=== PATIENT | female | born 1960 | race Caucasian/White ===

== ENCOUNTER 2017-10-09 16:33 | Emergency (ER) | payer OTHER ==
[~2017-10-09] VITALS: Ht 172.7 cm; Wt 75.8 kg
[~2017-10-09 16:33] MED LIST: ONDA4ODT8
[2017-10-09 16:46] VITALS: BP 115/66
--- NOTE | 2017-10-09 17:30 | NUR ---
PATIENT PRESENTS TO ED WITH RIGHT RIB PAIN . PT STATES . NO DISCOLORATION NOTED, NO FLAIL RIB PALPATED DENIES N/V/D; SKIN IS PINK/WARM/DRY; AAOX4 WITH EVEN AND STEADY GAIT; LUNGS CLEAR BL; HR EVEN AND REGULAR; PT DENIES ANY FEVER, CP, SOB, OR COUGH AT THIS TIME; PATIENT STATES PAIN OF 5/10 AT THIS TIME; VSS; PATIENT POSITIONED FOR COMFORT; HOB ELEVATED; BEDRAILS UP X2; BED DOWN. ER MD MADE AWARE OF PT STATUS.
[2017-10-09] MEDS: IBUPROFEN 400 MG TAB PO ONE (17:44)
--- NOTE | 2017-10-09 17:45 | NUR ---
PROVIDED PUDDING MIGUEL CRACKERS AND JUICES TO PT . PT STATED SHE HAD NOT EATEN RECENTLY AND WAS CONCERNED TAKING MOTRIN ON AN EMPTY STOMACH.
--- NOTE | 2017-10-09 18:05 | NUR ---
PT TO X-RAY VIA WHEEL CHAIR
--- NOTE | 2017-10-09 18:25 | NUR ---
RETURNED FROM X-RAY
[2017-10-09 18:41] VITALS: BP 121/65
== END 2017-10-09 18:41 | disposition home or self-care (01) ==
LOC: MED 16:33
DX: S20.211A Contusion of right front wall of thorax, initial encounter (principal); Z90.49 Acquired absence of other specified parts of digestive tract; W01.190A Fall on same level from slipping, tripping and stumbling with subsequent striking against furniture, initial encounter; Y93.89 Activity, other specified; Y92.89 Other specified places as the place of occurrence of the external cause; Y99.8 Other external cause status
CPT/HCPCS: 71101; 99284

== ENCOUNTER 2019-06-29 14:02 | Emergency (ER) | payer MEDICAID, OTHER ==
[~2019-06-29] VITALS: Ht 172.7 cm; Wt 75.3 kg
--- NOTE | 2019-06-29 14:08 | NUR ---
PT AMBULATED TO BED 05.
[2019-06-29 14:10] VITALS: BP 115/73
--- NOTE | 2019-06-29 14:12 | NUR ---
PT C/O INTERMITTENT FREQUENCY, URGENCY, AND BURNING SENSATION OF URINATION FOR ONE MONTH. THE SX ARE GETTING WORSE TODAY. PATIENT STATES PAIN OF 4/10 WHILE URINATING; VSS; PATIENT POSITIONED FOR COMFORT; HOB ELEVATED; BEDRAILS UP X1; BED DOWN. ER MD MADE AWARE OF PT STATUS.
[2019-06-29 15:09] VITALS: BP 113/68
--- NOTE | 2019-06-29 15:09 | NUR ---
Patient discharged with v/s stable. Written and verbal after care instructions given and explained. Patient alert, oriented and verbalized understanding of instructions. Ambulatory with steady gait. All questions addressed prior to discharge. ID band removed. Patient advised to follow up with PMD. Rx of Motrin and Cipro given. Patient educated on indication of medication including possible reaction and side effects. Opportunity to ask questions provided and answered.
== END 2019-06-29 15:09 | disposition home or self-care (01) ==
LOC: MED 14:02
DX: R30.0 Dysuria (principal); R10.9 Unspecified abdominal pain; Z87.442 Personal history of urinary calculi; Z90.49 Acquired absence of other specified parts of digestive tract; Z98.890 Other specified postprocedural states; Z79.899 Other long term (current) drug therapy
CPT/HCPCS: 81002; 99283

== ENCOUNTER 2019-08-20 10:45 | Emergency (ER) | payer MEDICAID ==
[~2019-08-20] VITALS: Ht 172.7 cm; Wt 76.2 kg
[2019-08-20 10:58] VITALS: BP 128/72
--- NOTE | 2019-08-20 10:58 | NUR ---
Patient ambulated to bed 9. RN evaluating patient at bedside.
--- NOTE | 2019-08-20 11:25 | NUR ---
PT BIB SELF C/O RT LOWER BACK/FLANK PAIN X YEARS. PT REPORTS HAVING "KIDNEY STONE FOR OVER 20 YEARS" 05/22 SHARP/BURNING RT FLANK/ RT LOWER BACK PAIN THAT INCREASES W/ URINATION. + VAGINAL ITCHINESS, - HEMATURIA, -N/V/D, - FEVER. VSS. ER MD TO SEE PT.
[2019-08-20] MEDS ORDERED: LIDOCAINE MPF 1% 10 MG/ML VIAL INJ ONE (11:35)
[2019-08-20] MEDS ORDERED: IBUPROFEN 400 MG TAB PO ONE (12:30)
--- NOTE | 2019-08-20 12:53 | NUR ---
Dr. Taylor re-evaluating patient at bedside.
[2019-08-20 13:37] VITALS: BP 128/72
== END 2019-08-20 13:11 | disposition home or self-care (01) ==
LOC: MED 10:45
DX: M62.830 Muscle spasm of back (principal); Z79.899 Other long term (current) drug therapy
CPT/HCPCS: 20552; 81002; 99284; J2001

== ENCOUNTER 2023-03-25 16:52 | Emergency (ER) | payer OTHER, MEDICAID ==
[~2023-03-25] VITALS: Ht 172.7 cm; Wt 74.4 kg
[2023-03-25 16:58] VITALS: BP 144/89
--- NOTE | 2023-03-25 18:10 | NUR ---
AMBULATED TO BED IN NO DISTRESS.
--- NOTE | 2023-03-25 18:30 | NUR ---
Pt claims she tripped over a 2 step walkway, misjudged the stair and fell to the ground, hit her face and nose on ground. she applied ice pack at home and drove self to hospital.
[2023-03-25] MEDS ORDERED: ACET-10509 PO (18:55)
[2023-03-25] MEDS ORDERED: TRAM50TA3 PO (18:55)
--- NOTE | 2023-03-25 18:55 | NUR ---
PATIENT AMBULATED TO THE RESTROOM WITHOUT ASSISTANCE
--- NOTE | 2023-03-25 19:09 | NUR ---
Patient discharged with v/s stable. Written and verbal after care instructions given and explained. Patient alert, oriented and verbalized understanding of instructions. Ambulatory with steady gait. All questions addressed prior to discharge. ID band removed. Patient advised to follow up with PMD. Rx of tramadol HCI given. Patient educated on indication of medication including possible reaction and side effects. Opportunity to ask questions provided and answered.
== END 2023-03-25 19:09 | disposition home or self-care (01) ==
LOC: MED 16:52
DX: S00.33XA Contusion of nose, initial encounter (principal); W18.30XA Fall on same level, unspecified, initial encounter; Y93.89 Activity, other specified; Y92.89 Other specified places as the place of occurrence of the external cause; Y99.8 Other external cause status
CPT/HCPCS: 70450; 70486; 99284

== ENCOUNTER 2024-01-04 16:24 | Emergency (ER) | payer OTHER ==
[~2024-01-04] VITALS: Ht 175.3 cm; Wt 74.8 kg
[~2024-01-04 16:24] MED LIST changes: +ACET-10509 PO; +TRAM50TA3 PO
[2024-01-04 16:37] VITALS: BP 157/77; PULSE 64; RESP 18; TEMP 98.6; O2SAT 95
[2024-01-04] MEDS ORDERED: COROTSOL RIGHT EAR (17:19)
== END 2024-01-04 17:26 | disposition home or self-care (01) ==
LOC: MED 16:24
DX: H60.91 Unspecified otitis externa, right ear (principal); R03.0 Elevated blood-pressure reading, without diagnosis of hypertension; Z79.899 Other long term (current) drug therapy
CPT/HCPCS: 99283